=== PATIENT | male | born 1935 ===

== ENCOUNTER 2023-03-10 06:32 | Emergency (ER) | payer MEDICARE, SELFPAY ==
--- NOTE | ~2023-03-10 | XR_ITS ---
EXAMINATION: XR CHEST CLINICAL INFORMATION: Acute dyspnea. COMPARISON: None available. TECHNIQUE: 2 views of the chest were obtained. FINDINGS: Mild coarsened interstitial markings are seen bilaterally. A tiny calcified granuloma seen in the left upper lobe laterally. There are no pleural effusions. The heart and mediastinal structures are unremarkable. XR/XR chest 2V IMPRESSION: Possible mild chronic interstitial changes without overt acute cardiopulmonary process.
--- NOTE | 2023-03-10 07:49 | ECG_ITS ---
Test Reason : ASTHMA Blood Pressure : / mmHG Vent. Rate : 099 BPM Atrial Rate : 099 BPM P-R Int : 142 ms QRS Dur : 076 ms QT Int : 376 ms P-R-T Axes : 075 067 076 degrees QTc Int : 482 ms Sinus rhythm with frequent Premature ventricular complexes Nonspecific ST abnormality Prolonged QT Abnormal ECG No previous ECGs available Referred By: Neo Adler Electronically Signed By:Ed Arevalo
[2023-03-10 07:52] VITALS: BP 151/80; PULSE 93; RESP 22; TEMP 36.6; O2SAT 98
--- NOTE | 2023-03-10 07:53 | ED.SOB ---
HPI - SOB/Dyspnea General Chief Complaint: Dyspnea Stated Complaint: SoB, heart pain Time Seen by Provider: 03/10/23 07:49 Source: patient Mode of arrival: ambulatory Limitations: no limitations History of Present Illness HPI Narrative: 87-year-old male with history of asthma presents with acute shortness of breath. Symptoms started 1 week ago. The symptoms are severe. They have been progressively getting worse. It is associated with a cough with clear, white and yellow mucus production. He has had no fevers or chills. He has had a pleuritic chest pain feeling like his chest is about to explode. He denies any orthopnea, PND, lower extremity edema. He does have some shortness of breath with exertion. Patient is not on oxygen at home. Quit smoking over 30 years ago. He has been using his albuterol but it has not been improving his symptoms. MD elicited complaint: shortness of breath Pertinent past history: asthma Onset (ago): week(s) (1) Timing: constant Severity: severe Exacerbating factors: exertion Relieving factors: nothing Known history of: asthma Associated symptoms: chest pain, pain with inspiration, cough, wheezing and sputum production Treatment prior to arrival: bronchodilator Related Data Home oxygen amount: none Previous Rx's Medication Instructions Recorded azithromycin 250 mg tablet 250 mg PO DAILY 4 days #4 tabs 03/10/23 budesonide-formoterol HFA 160 1 inh inhalation BID #10.2 grams 03/10/23 mcg-4.5 mcg/actuation aerosol inhaler prednisone 50 mg tablet 50 mg PO DAILY 5 days #5 tabs 03/10/23 Allergies Allergy/AdvReac Type Severity Reaction Status Date / Time No Known Allergies Allergy Verified 03/10/23 07:49 Review of Systems Review of Systems: CONSTITUTIONAL: Denies weight loss, fever and chills. HEENT: Denies changes in vision and hearing. RESPIRATORY: + SOB and cough. CV: Denies palpitations + CP. GI: Denies abdominal pain, nausea, vomiting and diarrhea. : Denies dysuria and urinary frequency. MSK: Denies myalgia and joint pain. SKIN: Denies rash and pruritus. NEUROLOGICAL: Denies headache and syncope. PSYCHIATRIC: Denies recent changes in mood. Denies anxiety and depression. All other ROS are negative unless in [facility] Past Medical History [facility], [facility] Narrative: asthma, BPH, glaucoma Social History Social History Smoked in Last 30 Days: No Use of substances other than those prescribed or required for medical reasons: No Advance Directives: No Physical Exam Vital Signs: Vital Signs: Last Vital Signs Temp 97.8 F 03/10/23 07:52 Pulse 84 03/10/23 08:29 Resp 18 03/10/23 08:29 BP 151/80 H 03/10/23 07:52 Pulse Ox 98 03/10/23 07:52 O2 Del Method Nasal Cannula 03/10/23 07:52 O2 Flow Rate 2.5 03/10/23 07:52 GEN: Well developed, moderate acute distress, alert, oriented HEENT: Normocephalic, atraumatic, normal external ears, nose appears normal, no oropharyngeal edema or exudates Eyes: Normal to appearance Neck: Supple, no lymphadenopathy Respiratory: accessory muscle use, prolonged expiration, expiratory wheezes Cardiovascular: Regular rate and rhythm, no murmurs rubs or gallops Abdomen: Soft, nontender, nondistended, no guarding, no rebound Back: No CVA tenderness Extremities: No clubbing cyanosis or edema Neurologic: No focal neurologic deficits, cranial nerves 2-12 intact, strength is 5/5 bilaterally Skin: No rash Course Course Course Narrative: 87-year-old male presents with acute shortness of breath. On arrival, patient was dyspneic, accessory muscle use, hypoxic with acute asthma exacerbation. He received DuoNebs x3, steroids, constant observation since 6:00 a.m. this morning. He has an oxygen saturation 95% on room air. Has no respiratory distress. No accessory muscle usage. He is feeling much better now his baseline. Patient can be discharged home at this time with an asthma exacerbation. Medications Administered Discontinued Medications Generic Name Dose Route Start Last Admin Trade Name Freq PRN Reason Stop Dose Admin Albuterol Sulfate 10 mg 03/10/23 07:49 03/10/23 08:28 Albuterol Sulfate (0.083%) 2.5 Mg/3 Ml Vial.Neb INHALE 03/10/23 07:50 10 mg ONCE ONE Administration Azithromycin 500 mg 03/10/23 07:49 03/10/23 08:20 Azithromycin 500 Mg Tablet PO 03/10/23 07:50 500 mg ONCE ONE Administration Methylprednisolone Sodium Succinate 125 mg 03/10/23 07:49 03/10/23 08:21 Methylprednisolone Sod Succ 125 Mg/2 Ml Vial IVPUSH 03/10/23 07:50 125 mg ONCE ONE Administration Medical Decision Making Medical Decision Making [facility] Narrative: 87-year-old male with history of asthma presents with progressive shortness breath over 1 week. Examination revealed mildly hypoxic male, accessory muscle use, tachypnea with prolonged expiration and expiratory wheezes. There is no edema. There are no rales or crackles. At this point I suspect asthma exacerbation/COPD exacerbation. Other differential diagnosis could include pneumonia, CHF, pleurisy, bronchitis, viral syndrome. My plan will be to obtain a CBC to check for an elevated white blood cell count which could be either due to infectious process or demargination. I will check for COVID and influenza to rule out these viral illnesses. I will check a chest x-ray to rule out CHF and pneumonia I will check a proBNP to assist with the diagnosis of CHF, troponin due to his chest pain to rule out acute coronary syndrome. His troponin is negative, he has had intermittent chest pain that is pleuritic in nature, troponin therefore would be diagnostic for or against acute coronary syndrome. In the meantime, I will treat the patient with albuterol nebulizer, steroids, azithromycin, frequent re-evaluations, place patient on continuous pulse oximetry. Differential Diagnosis Differential Diagnoses: The differential diagnosis associated with the presentation includes (See above) Admission/Observation Consideration of admission/observation: Escalation of care including admission/observation considered (Pending clinical improvement) Lab Data [facility] Lab Attestation statement: I reviewed the patient's lab results. 03/10/23 08:42 03/10/23 08:42 Labs: Lab Results 03/10/23 03/10/23 03/10/23 Range/Units 08:42 08:42 08:42 WBC 7.5 (4.8-10.8) X10*3/uL RBC 4.46 L (4.60-5.80) X10*6/uL Hgb 13.7 L (14.0-18.0) g/dl Hct 42.8 (42.0-52.0) % MCV 96.0 (80.0-98.0) fL MCH 30.7 (27.0-33.0) pg MCHC 32.0 (31.0-36.0) g/dl RDW 12.5 (11.0-16.0) % Plt Count 191 (160-400) X10*3/uL MPV 10.3 (9.4-12.4) fL Immature Gran % (Auto) 0.5 H (0.0-0.4) % Neut % (Auto) 45.2 (45-73) % Lymph % (Auto) 25.1 (20-40) % Island % (Auto) 9.5 (2-11) % Eos % (Auto) 19.0 H (0-4) % Baso % (Auto) 0.7 (0-2) % Lymph # (Auto) 1.9 (1.2-4.9) X10*3/uL Island # (Auto) 0.7 (0.1-1.2) X10*3/uL Eos # (Auto) 1.4 H (0.0-0.4) X10*3/uL Baso # (Auto) 0.1 (0.0-0.2) X10*3/uL Abs Immat Gran (auto) 0.04 H (0.00-0.03) X10*3/uL Absolute Neuts (auto) 3.4 (2.0-8.3) x10*3/uL Absolute Nucleated RBC 0.000 (0.0-0.012) X10*3/uL Nucleated RBC % (auto) 0.0 (0.0-0.2) /100WBC Sodium 148 H (135-145) mmol/L Potassium 4.5 (3.3-5.1) mmol/L Chloride 107 (96-108) mmol/L Carbon Dioxide 27 (22-29) mmol/L Anion Gap 19 (12-20) BUN 14 (9-16) mg/dL Creatinine 1.05 (0.5-1.4) mg/dL Estim Creat Clear Calc TNP Estimated GFR > 60 Random Glucose 111 (60-115) mg/dL Calcium 9.4 (8.4-10.2) mg/dL Troponin I High Sens 14.4 (<3.5-35.0) ng/L B-Natriuretic Peptide (<100) pg/mL COVID-19 (UBALDO) (Negative) COVID-19 Clin Com Influenza Type A (KALEB) (Negative) Influenza Type B (KALEB) (Negative) Influenza A & B Note 03/10/23 03/10/23 03/10/23 Range/Units 08:42 08:42 08:42 WBC (4.8-10.8) X10*3/uL RBC (4.60-5.80) X10*6/uL Hgb (14.0-18.0) g/dl Hct (42.0-52.0) % MCV (80.0-98.0) fL MCH (27.0-33.0) pg MCHC (31.0-36.0) g/dl RDW (11.0-16.0) % Plt Count (160-400) X10*3/uL MPV (9.4-12.4) fL Immature Gran % (Auto) (0.0-0.4) % Neut % (Auto) (45-73) % Lymph % (Auto) (20-40) % Island % (Auto) (2-11) % Eos % (Auto) (0-4) % Baso % (Auto) (0-2) % Lymph # (Auto) (1.2-4.9) X10*3/uL Island # (Auto) (0.1-1.2) X10*3/uL Eos # (Auto) (0.0-0.4) X10*3/uL Baso # (Auto) (0.0-0.2) X10*3/uL Abs Immat Gran (auto) (0.00-0.03) X10*3/uL Absolute Neuts (auto) (2.0-8.3) x10*3/uL Absolute Nucleated RBC (0.0-0.012) X10*3/uL Nucleated RBC % (auto) (0.0-0.2) /100WBC Sodium (135-145) mmol/L Potassium (3.3-5.1) mmol/L Chloride (96-108) mmol/L Carbon Dioxide (22-29) mmol/L Anion Gap (12-20) BUN (9-16) mg/dL Creatinine (0.5-1.4) mg/dL Estim Creat Clear Calc Estimated GFR Random Glucose (60-115) mg/dL Calcium (8.4-10.2) mg/dL Troponin I High Sens (<3.5-35.0) ng/L B-Natriuretic Peptide 307 H (<100) pg/mL COVID-19 (UBALDO) Negative (Negative) COVID-19 Clin Com See Note Influenza Type A (KALEB) Negative (Negative) Influenza Type B (KALEB) Negative (Negative) Influenza A & B Note See Note Independent Interpretation I performed an independent interpretation of an: EKG (Normal sinus rhythm heart rate 99, frequent PVCs, likely LVH, nonspecific ST T wave changes, QTC 482 milliseconds) and Plain X-Ray (Slightly increased markings of the right lower lung base.) Independent Historian Clinical information obtained from an independent historian. History obtained from or confirmed by: Spouse Prescription Management I considered prescription management with: Antibiotic Discharge Plan Discharge Clinical Impression: Asthma with exacerbation Patient Disposition: Still a Patient Instructions: Asthma (ED), How to Use a Metered-Dose Inhaler (ED), Wheezing (ED) Prescriptions: New prednisone 50 mg tablet 50 mg PO DAILY 5 Days Qty: 5 0RF azithromycin 250 mg tablet 250 mg PO DAILY 4 Days Qty: 4 0RF budesonide-formoterol 160-4.5 mcg/actuation HFA aerosol inhaler 1 inh inhalation BID Qty: 10.2 0RF Referrals: [facility] [Provider Group] - 2 days Print Language: Czech
[2023-03-10] MEDS: Azithromycin 500 MG TABLET PO (08:20)
[2023-03-10] MEDS: methylPREDNISolone Sod Succ 125 MG/2 ML VIAL IVPUSH (08:21)
[2023-03-10] MEDS: Albuterol Sulfate (0.083%) 2.5 MG/3 ML VIAL.NEB 10 MG INHALE (08:28)
[2023-03-10 08:29] VITALS: PULSE 84; RESP 18; O2SAT 95
[2023-03-10 08:47] LABS: MANUAL DIFF FLAG NO
[2023-03-10 08:51] LABS: Basophils Absolute Auto 0.1 X10*3/uL (0.0-0.2); Basophils Percent Auto 0.7 % (0-2); Eosinophils Absolute Auto 1.4 X10*3/uL (0.0-0.4); Hematocrit 42.8 % (42.0-52.0); Hemoglobin 13.7 g/dl (14.0-18.0); Imm Gran Abs Auto 0.04 X10*3/uL (0.00-0.03); Imm Gran Pct Auto 0.5 % (0.0-0.4); Lymphocytes Absolute Auto 1.9 X10*3/uL (1.2-4.9); Lymphocytes Percent Auto 25.1 % (20-40); Mean Corpuscular Hemoglobin 30.7 pg (27.0-33.0); Mean Platelet Volume 10.3 fL (9.4-12.4); Monocytes Absolute Auto 0.7 X10*3/uL (0.1-1.2); Monocytes Percent Auto 9.5 % (2-11); Neutrophils Absolute Auto 3.4 x10*3/uL (2.0-8.3); Neutrophils Percent Auto 45.2 % (45-73); Platelet Count 191 X10*3/uL (160-400); Red Blood Count 4.46 X10*6/uL (4.60-5.80); Red Cell Distribution Width 12.5 % (11.0-16.0); White Blood Count 7.5 X10*3/uL (4.8-10.8)
[2023-03-10 09:06] LABS: COVID-19 Test Negative (Negative); IDNOW Serial# 08D9AD1C; IDNOW Serial# BCCEAD1C; Influenza A Negative (Negative); Influenza B2 Negative (Negative)
[2023-03-10 09:32] LABS: Anion Gap 19 (12-20); Blood Urea Nitrogen 14 mg/dL (9-16); Calcium 9.4 mg/dL (8.4-10.2); Carbon Dioxide 27 mmol/L (22-29); Chloride 107 mmol/L (96-108); Estimated Glomerular Filt Rate > 60; Glucose Random 111 mg/dL (60-115); Potassium 4.5 mmol/L (3.3-5.1); Sodium 148 mmol/L (135-145)
[2023-03-10 09:37] LABS: B Type Natriuretic Peptide 307 pg/mL (<100)
[2023-03-10 09:42] LABS: Troponin-I High Sensitivity 14.4 ng/L (<3.5-35.0)
[2023-03-10 10:57] VITALS: BP 145/87; PULSE 99; RESP 16; O2SAT 92
== END 2023-03-10 11:05 | disposition still patient (30) ==
PROVIDERS: Emergency Provider Emergency Medicine
DX: J45.901 Unspecified asthma with (acute) exacerbation (principal); R06.02 Shortness of breath; R94.31 Abnormal electrocardiogram [ECG] [EKG]; Z20.822 Contact with and (suspected) exposure to COVID-19; Z20.828 Contact with and (suspected) exposure to other viral communicable diseases; Z79.899 Other long term (current) drug therapy
CPT/HCPCS: 71046; 80048; 83880; 84484; 85025; 87502; 87635; 93005; 94640; 99284; 99285; J2930